=== PATIENT | male | born 1955 | race Caucasian/White ===

== ENCOUNTER 2018-07-24 12:29 | Emergency (ER) | payer BC | END 2018-07-24 12:52 | disposition left against medical advice (07) | LOC: ERS 12:29 | DX: Z53.21 Procedure and treatment not carried out due to patient leaving prior to being seen by health care provider (principal) ==

== ENCOUNTER 2018-07-24 13:07 | Emergency (ER) | payer BC ==
[~2018-07-24 13:07] MED LIST: Iopamidol 370 76% 100 ML VIAL ONE
--- NOTE | 2018-07-24 15:20 | ULT ---
FOCUSED ULTRASOUND OF THE LEFT GROIN: DATE: 07/24/2018. HISTORY: Painful mass (knot) in the left groin, redness and swelling. FINDINGS: Focused ultrasound of the left inguinal region provided. In the area of clinical concern, there is a nonspecific hypoechoic irregularly marginated abnormality which appears to approach the subcutaneous fat and/or skin surface. It demonstrates no internal blo od flow and measures approximately 1.8 x 1.7 x 1.0 cm. This may represent a small irregular fluid co llection. Irregular mass or node possible but less likely. IMPRESSION: Irregular focal area of decreased echogenicity in the area of palpable concern. This may represent a nonspecific fluid collection/developing abscess or phlegmon. This could be best assessed via a foll owup ultrasound following treatment or CT examination with IV contrast. POS: MARIAMA
[2018-07-24 15:53] LABS: Band 2 % (5-11); Eosinophils 2 % (0-10); Hemoglobin 15.8 g/dL (14.0-18.0); Lymphocytes 15 % (21-51); MDiff Complete? YES; Mean Corpuscular HGB CONC 32.6 g/dL (32.0-36.0); Mean Corpuscular Hemoglobin 28.5 pg (27.0-31.0); Mean Corpuscular Volume 87.5 fL (78.0-98.0); Monocytes 12 % (0-10); Neutrophil 65 % (42-75); PLT Morphology Comment Appears Adequate; Platelet Count 173 thou/uL (130-400); RBC Distribution Width 12.7 % (11.5-14.5); Reactive Lymphocytes 4 % (0-10); Red Blood Cell (RBC) Count 5.54 mill/uL (4.70-6.10); White Blood Cell (WBC) Count 12.8 thou/uL (4.8-10.8)
[2018-07-24] MEDS ORDERED: Morphine 4 MG/ML VIAL ONE (15:57)
[2018-07-24] MEDS ORDERED: cefTRIAXone\\ROCEPHIN 1 GM VIAL ONE (15:58)
[2018-07-24] MEDS ORDERED: Ondansetron PF 4 MG/2 ML Vial ONE (15:58)
[2018-07-24] MEDS ORDERED: Sodium Chloride 0.9% 100 ML ONE (15:58)
[2018-07-24 16:00] LABS: Anion Gap 13 mmol/L (10-20); BUN (Urea Nitrogen) 17 mg/dL (8.4-25.7); Calc. Creatinine Clearance 0 mL/min (70-130); Calcium 9.6 mg/dL (7.8-10.44); Carbon Dioxide 29 mmol/L (23-31); Chloride 102 mmol/L (98-107); Estimated GFR-MDRD 89; Glucose 88 mg/dL (80-115); Potassium 4.6 mmol/L (3.5-5.1); Sodium 139 mmol/L (136-145)
[2018-07-24] MEDS ORDERED: Lidocaine 1% w/Epinephrine 1:100K 20 ML VIAL ONE (16:52)
[2018-07-24] MEDS ORDERED: Vancomycin HCl 500 MG VIAL ONE (17:16)
--- NOTE | 2018-07-24 20:11 | CT ---
POSTCONTRAST CT PELVIS: 07/24/18 HISTORY: Left sided groin mass. Patient woke up with knot in left groin this morning. Redness and swelling ty und this area. COMPARISON: Soft tissue ultrasound examination left inguinal region on 07/24/18. FINDINGS: There is inflammatory stranding seen within the subcutaneous fat in the left lower pelvis anterolater ally extending to the superior aspect of the scrotum. There is a small low density focus measuring 1. 2 cm likely corresponding to the ultrasound abnormality and could potentially represent a small devel oping abscess collection. No additional fluid collection is visualized. There is no evidence of lymph adenopathy. Small fat containing right inguinal hernia is present. Prostate gland demonstrates a lobulated superior and interior contour resulting in mass effect on the posterior aspect of the urinary bladder. Colonic diverticulosis is present. Degenerative changes seen in the visualized lower lumbar spine. IMPRESSION: 1. Inflammatory stranding in the lower left inguinal region extending to the superior aspect of the scrotum. There is mild overlying skin thickening. Findings may be related to cellulitis and infec tious process. There is a low density area measuring 1.2 cm which could be related to developing tin y abscess collection, but has more of an appearance of phlegmon on CT evaluation. 2. Tiny fat containing umbilical hernia and fat containing right inguinal hernia. 3. Irregularity and lobulated border of the prostate gland. 4. Colonic diverticulosis. POS: MARIAMA
== END 2018-07-24 19:10 | disposition home or self-care (01) ==
LOC: SCSER 13:07
DX: L02.214 Cutaneous abscess of groin (principal); B35.6 Tinea cruris; F17.200 Nicotine dependence, unspecified, uncomplicated
CPT/HCPCS: 72193; 76999; 80048; 83605; 85025; 87040; 87070; 87077; 87205; 96361; 96365; 96367; 96375; J0696; J2001; J2270; J2405; J3370; J7050

== ENCOUNTER 2018-07-26 11:17 | Inpatient (IN) | payer BC ==
[2018-07-26] MEDS ORDERED: metroNIDAZOLE 500 MG/100 ML BAG ONE (11:48)
[2018-07-26 11:53] LABS: #Basophils 0.1 thou/uL (0.0-0.2); #Eosinphils 0.2 thou/uL (0.0-0.7); #Lymphocytes 2.2 thou/uL (1.20-3.40); #Monocytes 0.8 thou/uL (0.11-0.59); #Neutrophils 3.3 thou/uL (1.40-6.50); %Basophils 1.8 % (0.0-1.0); %Eosinophils 3.2 % (0.0-10.0); %Lymphocytes 33.9 % (21.0-51.0); %Monocytes 11.3 % (0.0-10.0); %Neutrophils 49.8 % (42.0-75.0); Hemoglobin 15.8 g/dL (14.0-18.0); Mean Corpuscular HGB CONC 33.5 g/dL (32.0-36.0); Mean Corpuscular Hemoglobin 28.9 pg (27.0-31.0); Mean Corpuscular Volume 86.5 fL (78.0-98.0); Mean Platelet Volume 12.1 fL (7.4-10.4); PLT Morphology Comment Appears Adequate; Platelet Count 193 thou/uL (130-400); RBC Distribution Width 12.5 % (11.5-14.5); Red Blood Cell (RBC) Count 5.45 mill/uL (4.70-6.10); White Blood Cell (WBC) Count 6.6 thou/uL (4.8-10.8)
[2018-07-26 11:56] LABS: Anion Gap 15 mmol/L (10-20); BUN (Urea Nitrogen) 13 mg/dL (8.4-25.7); Calc. Creatinine Clearance 0 mL/min (70-130); Calcium 9.3 mg/dL (7.8-10.44); Carbon Dioxide 23 mmol/L (23-31); Chloride 104 mmol/L (98-107); Estimated GFR-MDRD Greater than 90; Glucose 109 mg/dL (80-115); Potassium 4.3 mmol/L (3.5-5.1); Sodium 138 mmol/L (136-145)
[2018-07-26] MEDS ORDERED: cefTRIAXone\\ROCEPHIN 2 GM VIAL ONE (12:04)
[2018-07-26] MEDS ORDERED: Sodium Chloride 0.9% 100 ML ONE (12:49)
[2018-07-26] MEDS ORDERED: diphenhydrAMINE 50 MG/ML VIAL IVP PRN (17:49)
[2018-07-26] MEDS ORDERED: diphenhydrAMINE 50 MG CAP PO PRN (17:49)
[2018-07-26] MEDS ORDERED: Zolpidem Tartrate 5 MG TAB PO PRN (17:51)
[2018-07-26] MEDS ORDERED: Ondansetron ODT 4 MG TAB PO PRN (17:51)
[2018-07-26] MEDS ORDERED: Acetaminophen 500 MG TAB PO PRN (17:51)
[2018-07-26] MEDS ORDERED: Ibuprofen 200 MG TAB PO PRN (17:51)
[2018-07-26] MEDS ORDERED: EPINEPHrine 1 MG/ML AMP IM PRN (17:52)
--- NOTE | 2018-07-27 04:35 | HP ---
CHIEF COMPLAINT: Abscess. HISTORY OF PRESENT ILLNESS: The patient was seen late last in the emergency department, underwent an incision and drainage of left groin with copious amount of pus released, which was cultured, and is currently growing Proteus without susceptibilities until tomorrow. The patient was placed on Keflex and Bactrim; however, was not instructed packing. The patient presented to the emergency department this morning for wound check, was found to have extending erythema and continued induration and discharge. The patient's wound was not irrigated or changed in the emergency department. The patient's vital signs and laboratory work improved. Not convinced this was a formal failure of antibiotics on an outpatient basis; however, more failure of proper wound care. At this point, agreed with IV antibiotics and improved wound care as an inpatient. The patient received a dose of vancomycin and Flagyl for the second time today along with Rocephin while in transit to [facility], had rash and itching and some swelling of the airway, which were quickly resolved with Benadryl. It is not fully clear which antibiotics caused this, however, during acute-phase with Rocephin, we will attempt to avoid at this point in time. ALLERGIES: THE PATIENT'S PRIOR ALLERGIES INCLUDED CLINDAMYCIN. REVIEW OF PAST MEDICAL, SOCIAL, SURGICAL HISTORY INCLUDES HYPERTENSION, SMOKES SOCIALLY, DRINKS SOCIALLY. LIVES WITH SPOUSE. MEDICATIONS: On review of ambulatory medications, the patient takes, 1. Amlodipine 5 mg. 2. Losartan 25 mg. PHYSICAL EXAMINATION: VITAL SIGNS: Arrival to the floor; temperature 98.6, pulse of 73, respiratory rate of 16, oxygen saturation 100% on room air, and blood pressure 139/91. GENERAL: The patient is alert and oriented, in no acute distress. HEENT: Head is normocephalic, atraumatic. Extraocular movements are intact. Sclerae are white. Oral mucosa is moist. NECK: Supple. Airway is patent and without edema to posterior oropharynx. HEART: Regular rate and rhythm. No murmurs auscultated. LUNGS: Clear to auscultation bilaterally. No rubs or wheezes. ABDOMEN: Protuberant, but soft. Positive bowel sounds. MUSCULOSKELETAL: Lower extremities without cyanosis or edema. SKIN: No current rash or erythema to trunk or upper or lower extremities. Induration of approximately 4 x 2 cm to the left groin with 0.5 cm incision with packing tape that is saturated with purulent material. The patient was instructed to irrigate in shower with shower wand and clean up nicely. The patient was repacked at bedside with 0.5 inch plain packing tape with dry gauze placed overlying some resemblance of pallor and erythema locally. However, there is marking pen around the patient's entire peroneum. There is no evidence of gas gangrene or necrotizing spread. There is no involvement of scrotum or penis. NEUROLOGIC: The patient is alert and oriented x3. No focal deficits. Speech is normal. LABORATORY DATA: White blood cell count of 6.6, platelet count of 193, neutrophils of 49%. Sodium of 138, potassium of 4.3, CO2 of 29, creatinine of 0.82. ASSESSMENT AND PLAN: Cellulitis, abscess, allergic reaction, hypertension. Continue the patient's home blood pressure medications, Benadryl p.r.n. both oral and IV, as well as epinephrine IM if any stridor or wheezing occurs. The patient is currently stable at the bedside exam. We will hold off any additional antibiotics until susceptibilities come back tomorrow given Proteus species likely an ex-candidate, antibiotic would be Levaquin both IV and oral, however, proper irrigation and packing changes discussed. We will change the packing and have the patient irrigate tomorrow morning as well. Job ID: [id number]
[2018-07-27] MEDS ORDERED: Acetaminophen/Codeine 30-300mg Tablet PO SCH (06:30)
[2018-07-27 06:56] LABS: ALT (SGPT) 20 U/L (8-55); AST (SGOT) 19 U/L (5-34); Albumin 3.6 g/dL (3.4-4.8); Alkaline Phosphatase 77 U/L (40-150); Anion Gap 10 mmol/L (10-20); BUN (Urea Nitrogen) 20 mg/dL (8.4-25.7); Bilirubin, Total 0.2 mg/dL (0.2-1.2); Calc. Creatinine Clearance 0 mL/min (70-130); Calcium 9.3 mg/dL (7.8-10.44); Carbon Dioxide 29 mmol/L (23-31); Chloride 104 mmol/L (98-107); Estimated GFR-MDRD 83; Globulin 3.2 g/dL (2.4-3.5); Glucose 107 mg/dL (80-115); Potassium 4.7 mmol/L (3.5-5.1); Protein, Total 6.8 g/dL (5.8-8.1); Sodium 138 mmol/L (136-145)
[2018-07-27 07:27] LABS: #Eosinphils 0.3 thou/uL (0.0-0.7); #Lymphocytes 3.1 thou/uL (1.20-3.40); #Monocytes 0.9 thou/uL (0.11-0.59); #Neutrophils 2.3 thou/uL (1.40-6.50); %Basophils 0.7 % (0.0-1.0); %Eosinophils 4.6 % (0.0-10.0); %Lymphocytes 46.2 % (21.0-51.0); %Monocytes 13.6 % (0.0-10.0); %Neutrophils 34.9 % (42.0-75.0); Hemoglobin 14.7 g/dL (14.0-18.0); Mean Corpuscular HGB CONC 31.8 g/dL (32.0-36.0); Mean Corpuscular Hemoglobin 29.3 pg (27.0-31.0); Mean Corpuscular Volume 91.9 fL (78.0-98.0); Mean Platelet Volume 9.9 fL (7.4-10.4); Platelet Count 217 thou/uL (130-400); RBC Distribution Width 12.6 % (11.5-14.5); Red Blood Cell (RBC) Count 5.01 mill/uL (4.70-6.10); White Blood Cell (WBC) Count 6.6 thou/uL (4.8-10.8)
[2018-07-27] MEDS ORDERED: Enoxaparin Sodium 40 MG/0.4 ML SYRINGE SC SCH (09:00)
[2018-07-27] MEDS: Losartan 25 MG TAB PO SCH (09:40)
[2018-07-27] MEDS: Amlodipine 5 MG TAB PO SCH (09:40)
[2018-07-27] MEDS: Sulfameth/Trimethoprim DS 800-160mg TAB PO SCH (20:14)
--- NOTE | 2018-07-28 00:17 | PRG ---
DATE OF SERVICE: 07/27/2018 HISTORY OF PRESENT ILLNESS: The patient has had no further reactions following initial reaction, which has resolved by Benadryl, to antibiotic, possibly Rocephin; however, cannot completely rule out vancomycin or metronidazole as a culprit. This was discussed. The patient may want to do antibiotic skin testing with [facility]ergy Immunology on outpatient basis. The patient continues to irrigate wound with expression after hot water and repacks, x2 now. Continues to get purulent discharge. PHYSICAL EXAMINATION: VITAL SIGNS: Temperature of 97.9, pulse of 71, blood pressure of 153/96. GENERAL: The patient is alert and oriented, in no acute distress. HEENT: Head is normocephalic, atraumatic. Extraocular movements are intact. Sclerae are white. Oral mucosa is moist. NECK: Supple. HEART: Regular rate and rhythm. No murmurs are auscultated. LUNGS: Clear to auscultation bilaterally. No rubs or wheezes. ABDOMEN: Protuberant, soft, nontender. EXTREMITIES: Left groin with packing and dressing in place. Removed, irrigated, and repacked with one half inch plain packing tape at bedside. No discernible difference in redness in the last 24 hours. LABORATORY DATA: White blood cell count of 6.6. Creatinine of 0.93. Microbiology, still remains Proteus; however, no susceptibilities today. ASSESSMENT AND PLAN: Cellulitis, abscess, allergic reaction to antibiotic, hypertension. Starting the patient on Levaquin and restarting oral Bactrim. Continuing home blood pressure medications. Following today's pack, likely discontinue packing and irrigation, expression secondary to shallow nature of his incision and drainage. The patient still has p.r.n. Benadryl if needed. We will follow up on the susceptibilities in the morning. Job ID: [id number]
[2018-07-28] MEDS: Sulfameth/Trimethoprim DS 800-160mg TAB PO SCH (08:04)
[2018-07-28] MEDS: Losartan 25 MG TAB PO SCH (08:04)
[2018-07-28] MEDS: Amlodipine 5 MG TAB PO SCH (08:05)
[2018-07-28 12:52] VITALS: BP 121/66; TEMP 98.1
[2018-07-28 14:20] VITALS: BMI 36.2
--- NOTE | 2018-07-29 15:26 | DIS ---
DATE OF ADMISSION: 07/26/2018 DATE OF DISCHARGE: 07/28/2018 PRIMARY CARE PHYSICIAN: Christian Ramachandran MD CHIEF COMPLAINT: Cellulitis. HISTORY OF PRESENT ILLNESS: The patient had I and D in the emergency room on last with packing. Packing was not removed. The wound was not irrigated, it got worse on Bactrim and Keflex. The patient was transitioned to proper wound care with irrigation and improved. The patient was transitioned from Rocephin after possible allergic reaction to Levaquin and continued on Bactrim. Cultures showed Proteus, which was sensitive to both Bactrim and Levaquin. After two doses of IV antibiotics and the patient remained stable on vital signs, he was discharged home with oral agents without difficulty. DISCHARGE MEDICATIONS: Include; 1. Amlodipine 5 mg. 2. Levaquin 750 mg. 3. Losartan 25 mg. 4. Bactrim one tablet p.o. b.i.d. double-strength. DISCHARGE ACTIVITY: As tolerated. DISCHARGE DIET: Regular. DISCHARGE FOLLOWUP: With myself, Dr. Christian Ramachandran, in 7 to 10 days, sooner if any worsening swelling or redness occurs. The patient's wound care instructions are to irrigate with soap and water profusely at least twice a day to three times a day. Wear absorbent pad overlying with underwear. May return to work when the patient desires and is able to walk full day. Job ID: [id number]
== END 2018-07-28 14:55 | disposition home or self-care (01) | DRG 603 ==
LOC: SCSER 11:17 → SURG A 11:59
PROVIDERS: ADMIT Family Medicine; ATTEND Family Medicine
DX: L02.214 Cutaneous abscess of groin (principal); L03.314 Cellulitis of groin; I10 Essential (primary) hypertension; L27.0 Generalized skin eruption due to drugs and medicaments taken internally; T36.1X5A Adverse effect of cephalosporins and other beta-lactam antibiotics, initial encounter
CPT/HCPCS: 36415; 72193; 76999; 80048; 80053; 83605; 85025; 87040; 87070; 87077; 87186; 87205; 96361; 96365; 96367; 96375; J0696; J1956; J2001; J2270; J2405; J3370; J7050